=== PATIENT | female | born 1995 | race Asian ===

== ENCOUNTER 2017-04-04 12:11 | Emergency (ER) | payer BC ==
[2017-04-04] MEDS ORDERED: NS 1,000 ML IV ONE (12:30)
[2017-04-04 12:37] LABS: % IMMATURE GRANULYOCYTES 0.6 % (0.0-1.1); ABSOLUTE IMMATURE GRANULOCYTES 0.08 10^3/uL (0.00-0.10); ADD DIFF? NO; ADD MORPH? NO; ADD SCAN? NO; ATYPICAL LYMPHOCYTE FLAG 20 (0-99); FRAGMENT RBC FLAG 0 (0-99); HEMATOCRIT 41.5 % (38.0-47.0); HEMOGLOBIN 14.1 g/dL (12.6-16.3); LEFT SHIFT FLG 0 (0-99); LIPEMIA HEMOLYSIS FLAG 90 (0-99); MEAN CELL HEMOGLOBIN 28.7 pg (27.9-34.1); MEAN CELL VOLUME 84.3 fL (81.5-99.8); MEAN PLATELET VOLUME 10.6 fL (8.7-11.7); PLATELET CLUMPS FLAG 10 (0-99); PLATELET COUNT 281 10^3/uL (150-400); RED BLOOD CELL COUNT 4.92 10^6/uL (4.18-5.33); RED CELL DISTRIBUTION WIDTH 12.7 % (11.5-15.2)
--- NOTE | 2017-04-04 12:41 | CPEKG ---
Heart Rate: 57 RR Interval: 1053 P-R Interval: 140 QRSD Interval: 100 QT Interval: 480 QTC Interval: 468 P [place]: 0 QRS [place]: 97 T Wave [place]: 68 EKG Severity - ABNORMAL ECG - EKG Impression: SINUS RHYTHM EKG Impression: LEFT POSTERIOR FASCICULAR BLOCK Electronically Signed By: Chevy Torres 06-Apr-2017 15:55:42
[2017-04-04 12:43] LABS: ANION GAP 14 mEq/L (8-16); CALCIUM 9.1 mg/dL (8.5-10.4); CARBON DIOXIDE 21 mEq/l (22-31); CHLORIDE 105 mEq/L (97-110); CREATININE 0.6 mg/dL (0.6-1.0); GLOMERULAR FILTRATION RATE > 60; GLUCOSE 141 mg/dL (70-100); POTASSIUM 3.1 mEq/L (3.5-5.2); SODIUM 140 mEq/L (134-144)
--- NOTE | 2017-04-04 12:47 | EDPHY ---
H & P Stated Complaint: Passed out in bathroom, C/of period cramps took Midol Time Seen by Provider: 04/04/17 12:30 HPI/ROS: CHIEF COMPLAINT: Abdominal pain HISTORY OF PRESENT ILLNESS: This is a usually healthy 21-year-old female who started her menstrual period today. She states that her periods are regular. She often has severe menstrual cramps for which she takes Midol. She got up to take a might all today and had severe lower abdominal pain. She called out to her father who brought her to the emergency department. She took the might all about an hour ago and notes some improvement in her cramping. Initially there was report of syncope but she tells me that she did not faint. No recent illnesses. She has not had fever. She has nausea but no vomiting. She denies diarrhea. No urinary symptoms. She denies the possibility of . REVIEW OF SYSTEMS: A ten point review of systems was performed and is negative with the exception of the items mentioned in the HPI. - Personal History LMP (Females 10-55): Now Current Tetanus/Diphtheria Vaccine: Unsure Current Tetanus Diphtheria and Acellular Pertussis (TDAP): Unsure - Medical/Surgical History Hx Asthma: Yes Hx Chronic Respiratory Disease: No Hx Diabetes: No Hx Cardiac Disease: No Hx Renal Disease: No Hx Cirrhosis: No Hx Alcoholism: No Hx HIV/AIDS: No Hx Splenectomy or Spleen Trauma: No Other PMH: Childhood asthma, menstrual cramps - Social History Smoking Status: Never smoked Alcohol Use: None Drug Use: None Additional Social History: Here with her father. 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 - Physical Exam Exam: General Appearance: Alert. Vital signs reviewed. Eyes: Pupils equal and round, no conjunctival injection, no discharge. Anicteric. ENT, Mouth: Mucous membranes are moist, no oropharyngeal erythema or edema. Neck: No lymphadenopathy, supple. Respiratory: Lungs are clear to auscultation; no wheezes, rales, or rhonchi. Cardiovascular: Regular rate and rhythm; no murmur, rub, or gallop. Gastrointestinal: Abdomen is soft and nontender, no masses or organomegaly, bowel sounds normal. Skin: Warm and dry, no rashes on exposed skin, normal color. Back: Nontender to palpation over the thoracolumbar spine. No CVAT. Extremities: No lower extremity edema, no calf tenderness or swelling. Neurological: Alert and oriented. Moving all four extremities easily and equally. Facial expressions symmetric. Tongue midline. Psychiatric: Flat affect. Constitutional: Initial Vital Signs Temperature (C) 36.5 C 04/04/17 12:23 Heart Rate 53 L 04/04/17 12:23 Respiratory Rate 18 04/04/17 12:23 Blood Pressure 107/55 L 04/04/17 12:23 O2 Sat (%) 97 04/04/17 12:23 O2 Delivery Mode Room Air Allergies/Adverse Reactions: No Known Allergies Allergy (Verified 04/04/17 12:25) Home Medications: Medication Instructions Recorded Midol 04/04/17 Medical Decision Making - Diagnostics EKG Interpretation: 12 lead EKG is interpreted in Trace master View by emergency department physician. ED Course/Re-evaluation: 21-year-old with lower abdominal pain. Pain is consistent with previous dysmenorrhea. There was an initial report of syncope and she had an EKG done which shows a sinus rhythm with a rate of 57. No acute changes. She received 1 L of normal saline IV, 50 mg Toradol IV, and Zofran 4 mg IV. With these treatments she felt better. I reviewed her laboratory studies. She is not . There is no sign of anemia. She does not appear dehydrated at the time of my exam. I think that she can safely return home with symptomatic treatment for menstrual cramps. I am referring her to both primary care physician and an physical sciences instructor, as she does not have any care providers. I do not suspect infection such as urinary tract infection or pyelonephritis. There is nothing in her history to make me think that this could be PID. She is not so ectopic is off the list. She does not have right lower quadrant pain and I do not suspect appendicitis. There is no upper abdominal pain and I am not concerned about cholecystitis, pancreatitis, or gastritis. She is quite certain that she did not faint. - Data Points Laboratory Results: Laboratory Results 04/04/17 12:30 04/04/17 12:30 04/04/17 04/04/17 04/04/17 12:30 12:30 12:30 WBC 14.54 10^3/uL H 10^3/uL (3.80-9.50) RBC 4.92 10^6/uL 10^6/uL (4.18-5.33) Hgb 14.1 g/dL g/dL (12.6-16.3) Hct 41.5 % % (38.0-47.0) MCV 84.3 fL fL (81.5-99.8) MCH 28.7 pg pg (27.9-34.1) MCHC 34.0 g/dL g/dL (32.4-36.7) RDW 12.7 % % (11.5-15.2) Plt Count 281 10^3/uL 10^3/uL (150-400) MPV 10.6 fL fL (8.7-11.7) Neut % (Auto) 59.5 % % (39.3-74.2) Lymph % (Auto) 31.1 % % (15.0-45.0) [place] % (Auto) 5.5 % % (4.5-13.0) Eos % (Auto) 2.5 % % (0.6-7.6) Baso % (Auto) 0.8 % % (0.3-1.7) Nucleat RBC Rel Count 0.0 % % (0.0-0.2) Absolute Neuts (auto) 8.66 10^3/uL H 10^3/uL (1.70-6.50) Absolute Lymphs (auto) 4.52 10^3/uL H 10^3/uL (1.00-3.00) Absolute Monos (auto) 0.80 10^3/uL 10^3/uL (0.30-0.80) Absolute Eos (auto) 0.36 10^3/uL 10^3/uL (0.03-0.40) Absolute Basos (auto) 0.12 10^3/uL H 10^3/uL (0.02-0.10) Absolute Nucleated RBC 0.00 10^3/uL 10^3/uL (0-0.01) Immature Gran % 0.6 % % (0.0-1.1) Immature Gran # 0.08 10^3/uL 10^3/uL (0.00-0.10) Sodium 140 mEq/L mEq/L (134-144) Potassium 3.1 mEq/L L mEq/L (3.5-5.2) Chloride 105 mEq/L mEq/L (97-110) Carbon Dioxide 21 mEq/l L mEq/l (22-31) Anion Gap 14 mEq/L mEq/L (8-16) BUN 13 mg/dL mg/dL (7-23) Creatinine 0.6 mg/dL mg/dL (0.6-1.0) Estimated GFR > 60 Glucose 141 mg/dL H mg/dL (70-100) Calcium 9.1 mg/dL mg/dL (8.5-10.4) Beta HCG, Qual NEGATIVE Medications Given: Discontinued Medications Sodium Chloride (Ns) 1,000 mls @ 0 mls/hr IV ONCE ONE; Wide Open PRN Reason: Protocol Stop: 04/04/17 12:31 Last Admin: 04/04/17 12:33 Dose: 1,000 mls Ketorolac Tromethamine (Toradol) 15 mg IVP EDNOW ONE Stop: 04/04/17 12:49 Last Admin: 04/04/17 12:57 Dose: 15 mg Ondansetron HCl (Zofran) 4 mg IVP EDNOW ONE Stop: 04/04/17 12:49 Last Admin: 04/04/17 12:55 Dose: 4 mg Departure - Departure Disposition: Home, Routine, Self-Care Clinical Impression: Severe menstrual cramps Condition: Good Instructions: Dysmenorrhea (ED) Additional Instructions: You can continue with Midol for your cramps. I recommend taking ibuprofen 400 mg every 6 hours also. I am referring you to a primary care doctor, Dr. Pantoja, to use if you need outpatient care. If you continue with severe menstrual cramps I advise you to follow up with a physical sciences instructor. I am referring you to Dr. Enedelia Virk for gynecologic care. Referrals: Larisa Pantoja MD [Medical Doctor] - As per Instructions
[2017-04-04] MEDS ORDERED: ONDANSETRON 4 MG/2 ML VIAL IVP ONE (12:48)
[2017-04-04] MEDS ORDERED: KETOROLAC 30 MG/1 ML SDV IVP ONE (12:48)
[2017-04-04 13:52] VITALS: BP 100/54; PULSE 92; RESP 18; TEMP 98.4; O2SAT 98
== END 2017-04-04 14:01 | disposition home or self-care (01) ==
LOC: CED 12:11
DX: R25.2 Cramp and spasm (principal); J45.909 Unspecified asthma, uncomplicated; E86.9 Volume depletion, unspecified
CPT/HCPCS: 80048-PO; 84703-PO; 85025-PO; 96374; J1885; J2405